=== PATIENT | female | born 1975 | race Caucasian/White ===

== ENCOUNTER 2016-10-24 13:43 | Inpatient (IN) | payer OTHER ==
--- NOTE | ~2016-10-24 | MR59 ---
[facility] A Service of [facility] RADIOLOGY TEXT RESULTS PATIENT: RORO MELENDEZ LOCATION: [facility] 462-01 : 75 UNIT #: [id number] AGE: [address]: Sreekanth Caballero MD SEX: F ORDER DR: [id number] [place] [id number] [facility]. [place], [place] [address] [id number] MR#: [id number] Acc #: [id number] NAME: ORRO MELENDEZ : 1975 SEX: F STUDY DATE/TIME: 10/24/2016 20:44 UNIT: CEDOF ROOM: 96301 STUDY DESCRIPTION: MR Foot WWo Contrast Rt Attending Physician: Shaista Toscano M.D. Ordering Physician: Shaista Toscano M.D. MRI CENTER REPORT This report is preliminary unless electronic signature is present. EXAM MRI of the right foot with and without contrast. HISTORY 41-year-old female with multiple medical problems, states ulcer on plantar aspect of right great toe. Additional ulcers, fourth and fifth toes. FINDINGS Multiplanar, multiecho imaging was performed of the right forefoot utilizing a high-field magnet dedicated protocol. Sagittal and coronal T1-weighted images were performed following IV gadolinium. Studies degraded due to motion artifact. Examination demonstrates arthropathic changes at the IP joint of the great toe. This may represent a chronic or burned out process as no joint fluid is seen at the IP joint. No surrounding marrow edema. There is a subtle marrow edema within the proximal phalanx of the great toe with subtle enhancement postcontrast which could reflect early osteomyelitis though this may just represent reactive changes. Sizable penetrating ulcer seen along the plantar aspect of the great toe measuring about 1.6 cm across its base. There is marked soft tissue swelling and edema circumferentially about the great toe with enhancement postcontrast. Along the plantar aspect of the great toe there is a linear peripherally enhancing fluid collection measuring up to 1.6 cm in length and about 0.6 cm in greatest transverse dimension. This is compatible with a small abscess. At the fifth toe, there is a dorsal ulcer and subtle marrow changes within the distal phalanx of the fifth toe which are concerning for early osteomyelitis. At the fourth toe, there is a dorsal ulcer with edema and marrow changes within the distal phalanx of the fourth toe, compatible with osteomyelitis. This enhances postcontrast also supportive of active infection. There is generalized soft tissue swelling and edema within the forefoot which shows some enhancement postcontrast compatible with cellulitis. Chronic changes within the forefoot musculature of STS[facility] A Service of [facility] RADIOLOGY TEXT RESULTS PATIENT: RORO MELENDEZ LOCATION: [facility] 462-01 : 75 UNIT #: [id number] AGE: [address]: Sreekanth Caballero MD SEX: F ORDER DR: diffuse atrophy and edema compatible with longstanding neurovascular disease. IMPRESSION 1. Extensive soft tissue swelling and edema throughout the forefoot most prominent about the great toe compatible with cellulitis. Along the plantar aspect of the great toe, there is a peripherally enhancing fluid collection measuring about 0.6 x 1.6 cm in greatest transverse dimensions and is compatible with a small abscess. 2. Subtle marrow edema within the proximal phalanx of the great toe but no convincing evidence of osteomyelitis. 3. Advanced arthropathic changes at the IP joint of the great toe but given the absence of fluid and edema, this may represent a burned out process or quiescent arthropathic change. 4. Ulcer along the dorsal aspect of the fourth toe with marrow changes in the distal phalanx compatible with underlying osteomyelitis. Similar but less convincing findings are seen within the fifth toe with a small ulcer and questionable early changes of osteomyelitis involving the distal tip of the fifth toe. Dictated by... Paloma Fonseca M.D. THIS IS AN ELECTRONICALLY VERIFIED REPORT Paloma Fonseca M.D. at 10/25/2016 2:48 PM REBECA/derik TD: 10/24/2016 23:05 JOB #: [id number] MRI CENTER REPORT Page 1 of 1 COPY
--- NOTE | ~2016-10-24 | OR ---
Unit #: [id number] #: [id number] Patient: RORO MELENDEZ [id number] [address] [address] [id number] I MR#: [id number] NAME: RORO MELENDEZ ROOM: 462 Date of Procedure: 10/26/2016 Admission Date: 10/24/2016 Surgeon: Trung Hernandez M.D. : 1975 Attending Physician: Sreekanth Caballero M.D. OPERATIVE REPORT PREOPERATIVE DIAGNOSIS Osteomyelitis of the fourth and fifth toes on the right foot with a diabetic foot ulcer on the plantar aspect of the great toe. PROCEDURE PERFORMED Amputation of fourth and fifth toes at the metatarsophalangeal joint and debridement of ulcer. TECHNOLOGY ADMINISTRATOR None. BLOOD LOSS 25 to 50 mL. DESCRIPTION OF PROCEDURE The patient was brought to the operating room, given general anesthetic. She was already on scheduled IV vancomycin. Right foot was prepped and draped in a sterile fashion. After this was done, we mapped out incisions for the amputation of fourth and fifth toes. These were then performed without a tourniquet with an amputation through the metatarsophalangeal joint. After this was done, the wound was irrigated out and then the skin was closed with 3-0 nylon. We then debrided the ulcer on the plantar aspect of the right foot, removing any necrotic tissue. We then applied a wet-to-dry dressing with normal saline. Sterile dressings were applied upon this and then wrapped with a Kerlix. The patient's general anesthetic was reversed, and she was transferred to the recovery room. Dictated by... Chetna Casey/john TD: 10/27/2016 13:33 JOB #: [id number] Unit #: [id number] #: [id number] Patient: RORO MELENDEZ OPERATIVE REPORT Page 1 of 1 X Trung Hernandez MD X PROCEDURE OPERATIVE NOTE
--- NOTE | ~2016-10-24 | CR126 ---
[facility] A Service of [facility] RADIOLOGY TEXT RESULTS PATIENT: RORO MELENDEZ LOCATION: [facility] : 75 UNIT #: [id number] AGE: [address]: Sreekanth Caballero MD SEX: F ORDER DR: [id number] [facility] [address] [facility]. [place], [place] [address] [id number] MR#: [id number] Acc #: [id number] NAME: RORO MELENDEZ : 1975 SEX: F STUDY DATE/TIME: 10/24/2016 15:41 UNIT: [facility] ROOM: STUDY DESCRIPTION: CR Foot Complete Min 3 View Lt Attending Physician: Francisco Talamantes M.D. Ordering Physician: Francisco Talamantes M.D. MEDICAL IMAGING REPORT This report is preliminary unless electronic signature is present EXAM Left foot 3 views. HISTORY Foot pain, swelling, numbness, tingling for 2 months; history of left ankle fracture 1-1/2 months ago. Diabetic. FINDINGS 3 views of the left foot demonstrate 2 partially threaded screws crisscrossing the IP joint of the left great toe. There is lucency surrounding both of the screws and no significant fusion across the IP joint. This would be concerning for loosening of the instrumentation and the lack of apparent fusion across the IP joint. Mild hallux valgus deformity. There is a healing fracture of the distal fibula with extensive callus formation. The fracture appears visible, but not well imaged on this foot series. Also demonstrated is absence of the distal phalanges of the second, third, and fourth digits. It is unclear whether this is postsurgical in nature or represents a manifestation of acroosteolysis. Not mentioned on the right foot films, there are similar findings involving the second and third phalanges. This does not, however, appear to represent an active process. Correlate with patient's clinical findings. IMPRESSION 1. Apparent fixation across the IP joint with lucency about 2 screws across the IP joint of the great toe suggesting loosening of the instrumentation as well as lack of fusion across the IP joint. 2. Healing distal fibular fracture with exuberant callus. Fracture remains clearly visible, but not well evaluated on this foot series. 3. 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 Correlate with clinical presentation. [facility]. [facility] A Service of [facility] RADIOLOGY TEXT RESULTS PATIENT: RORO MELENDEZ LOCATION: [place] [address] : 75 UNIT #: [id number] AGE: [address]: Sreekanth Caballero MD SEX: F ORDER DR: Dictated by... Paloma Fonseca M.D. THIS IS AN ELECTRONICALLY VERIFIED REPORT Paloma Fonseca M.D. at 10/25/2016 2:45 PM Angeli TD: 10/24/2016 16:50 JOB #: [id number] MEDICAL IMAGING REPORT Page 1 of 1 COPY
--- NOTE | ~2016-10-24 | HP ---
Unit #: [id number] #: [id number] Patient: RORO MELENDEZ [id number] [address] [address] [id number] I MR#: [id number] NAME: RORO MELENDEZ ROOM: 68843 Age: 41 Sex: F Admission Date: 10/24/2016 : 1975 Attending Physician: Shaista Toscano M.D. HISTORY AND PHYSICAL CHIEF COMPLAINT Ulcer on foot. HISTORY OF PRESENT ILLNESS The patient is a 41-year-old female with a past medical history of diabetes with peripheral neuropathy, osteomyelitis, and hypertension, who presented to the emergency department for evaluation of the above. The patient states that she has had an ulcer on the plantar surface of her right foot since May. She does not recall any trauma. She has been seeing Dr. Shipley, a reinforcement maker, in [place], [place], regarding the foot ulcer. She was apparently hospitalized at [facility] in May 2016 for the ulcer. She has not been on antibiotics for several months. She states that it has intermittently been draining pus. She was told that she would need surgery but has not had surgery. In the emergency department, temperature and pulse were 98.1 and 87, respectively. Right foot x-ray shows findings concerning for possible septic arthritis and osteomyelitis. She was given vancomycin in the emergency department. She is being admitted to [facility] for evaluation and further treatment. PAST MEDICAL HISTORY 1. Admission to [facility] in May 2016 for diabetic foot ulcer (no records). 2. Diabetes with peripheral neuropathy. 3. History of osteomyelitis involving toes of the left foot. She is status post amputations of the distal phalanges of the second, third, and fourth digits of the left foot. 4. Possible seizure disorder. The patient states that she has never been on antiepileptic medications and does not see a neurologist. She was told that she possibly had a seizure in the past. PAST SURGICAL HISTORY 1. Right shoulder surgery. 2. Cholecystectomy. 3. Left hip surgery. 4. Amputations of distal phalanges of the second, third, and fourth digits of the left foot. SOCIAL HISTORY The patient lives currently with her [id number]. She just moved here from [place], [place]. She smokes a pack of cigarettes daily. She denies alcohol or illicit drug use. Unit #: [id number] #: [id number] Patient: RORO MELENDEZ FAMILY HISTORY Notable for diabetes. ALLERGIES Penicillin. HOME MEDICATIONS 1. Glucophage 1000 mg twice daily. 2. Zestril 10 mg daily. 3. Cymbalta 60 mg daily. 4. Victoza 1.2 units daily. 5. Neurontin 800 mg t.i.d. REVIEW OF SYSTEMS A complete review of systems is negative except as indicated in the History of Present Illness. The patient denies any fever, no cough or cold symptoms, and no chest pain. She just started vomiting during the course of her evaluation in the emergency department. She denies any diarrhea. She does not routinely check her blood sugars at home. PHYSICAL EXAMINATION VITAL SIGNS: Temperature is 98.1, pulse 87, respirations 18, blood pressure 125/87, and oxygen saturation 100% on room air. GENERAL: Patient is a female who is awake, alert, and actively vomiting. HEENT: Head is atraumatic. Mucous membranes are moist. NECK: Supple. Trachea is midline. CARDIOVASCULAR: Regular rate and rhythm. LUNGS: Clear to auscultation bilaterally with no increased work of breathing. ABDOMEN: Soft and nontender with bowel sounds present in all four quadrants. EXTREMITIES: The right foot demonstrates two ulcers. There is one that is approximately 2 cm on the plantar surface of the foot at the base of the great toe with surrounding erythema and warmth. There are also small ulcers on the fourth and fifth digits. Additionally, she has a small ulcer surrounding the nail bed of the left great toe. The distal phalanges of the second, third, and fourth digits of the left foot have been previously amputated. She does have 2+ dorsalis pedis pulses involving both feet. NEUROLOGIC: Patient is awake and alert. She follows commands. PSYCHIATRIC: Mood and affect are normal. Patient is cooperative. SKIN: Skin demonstrates the previously described abnormalities. DIAGNOSTIC STUDIES LABORATORY: Complete blood count notable for white blood cell count of 13. Sedimentation rate is 58. CRP is 0.8. Basic metabolic panel notable for sodium of 131, chloride 98, and glucose 311. IMAGING: Right foot x-ray shows extensive soft tissue swelling along the medial aspect of the great toe compatible with cellulitis with a penetrating ulcer and extensive deformity at the IP joint. Findings concerning for underlying septic arthritis and osteomyelitis of the great toe are noted. Left foot x-ray shows healing distal fibular fracture with exuberant callus. ASSESSMENT Unit #: [id number] #: [id number] Patient: RORO MELENDEZ The patient is a 41-year-old female with: 1. Diabetic foot ulcer. The patient received vancomycin in the emergency department. 2. Possible septic arthritis involving the interphalangeal joint of the right great toe. 3. Possible osteomyelitis. 4. Uncontrolled diabetes with an initial glucose of 311. 5. Hypertension. 6. Tobacco abuse. PLAN 1. Admit to med/surg. 2. Advance to clear liquid diet as tolerated. 3. N.p.o. after midnight for possible surgical intervention. 4. Normal saline at 125 mL/hour. 5. Blood cultures x2. 6. Wound culture and sensitivity. 7. Vancomycin and Levaquin IV pending further workup. 8. Check MRI of the right foot for further evaluation of osteomyelitis. 9. P.r.n. morphine. 10. P.r.n. Zofran. 11. P.r.n. Tylenol. 12. Consult Dr. Hernandez regarding possible septic arthritis and osteomyelitis involving the right great toe. 13. Hemoglobin A1c. 14. Low-dose sliding scale insulin with Accu-Cheks. 15. Check urinalysis. 16. EKG and chest x-ray as part of possible preoperative evaluation. 17. Additional workup and consultants based on above. 1. Dictated by Chetna Brown/nirmal TD: 10/24/2016 22:38 JOB #: [id number] HISTORY AND PHYSICAL Page 1 of 1 X Shaista Toscano MD HISTORY AND PHYSICAL
--- NOTE | ~2016-10-24 | EKG ---
PATIENT: RORO MELENDEZ UNIT #: [id number] Ventricular Rate: 73 BPM Atrial Rate: 73 BPM P-R Interval: 142 ms QRS Duration: 76 ms Q-T Interval: 404 ms QTC Calculation(Bezet): 445 ms P Augusta: 43 degrees Calculated R [place]a: 24 degrees Calculated T Augusta: 67 degrees Diagnosis Line: Sinus rhythm with sinus arrhythmia with occasional Diagnosis Line: Premature ventricular complexes Diagnosis Line: Possible Left atrial enlargement Diagnosis Line: Borderline ECG Diagnosis Line: No previous ECGs available Diagnosis Line: Confirmed by ANTHONY SOLER MD ([id number]) on Diagnosis Line: 10/25/2016 7:34:07 AM INTERPRETING MD: RENALDO
--- NOTE | ~2016-10-24 | CO ---
Unit #: [id number] #: [id number] Patient: RORO MELENDEZ [id number] [place], [place] [address] [id number] I MR#: [id number] NAME: RORO MELENDEZ ROOM: 462 Age: 41 Sex: F Admission Date: 10/24/2016 : 1975 Attending Physician: Sreekanth Caballero M.D. Consultation Date: 10/25/2016 CONSULTATION REPORT REASON FOR CONSULTATION Antibiotic management in a patient with diabetic foot ulcer/osteomyelitis. HISTORY OF PRESENT ILLNESS This is a 41-year-old female who has a history of diabetes. The patient reports that she has had multiple foot infections in the past on the left side of her foot. She has had amputations on multiple tips of her toes in 05/2016. The patient reports she also had long-term IV and oral antibiotic therapy for her right foot ulcer and toes in 07/2016. She is unaware if she had any specific bacteria, but she reports she continued to have wounds on her feet. The patient reports that she was recommended to have amputation of all of her toes by her build and release manager in [place], [place]. However, she had a fractured left ankle since being told that information and she reports multiple other issues that came up and she never had it done. The patient since has moved to [place], [place] and now she is admitted for diabetic foot ulcers and osteomyelitis. The patient has been seen by the surgeon and she is waiting to go to the operating room for fourth and fifth metatarsal amputation and plantar foot ulcer incision and drainage. As MRI confirmed, osteomyelitis of the fourth toe and possibly on the fifth toe and planar ulcer with small abscess. The patient has been maintained on vancomycin and Levaquin. PAST MEDICAL HISTORY 1. As previously stated in history of present illness. Admission to outside hospital in 2017 secondary to diabetic foot ulcer. 2. Diabetes with peripheral neuropathy. 3. Osteomyelitis of the left foot, status post amputation of the distal phalanges of multiple digits. 4. Possible seizure disorder. However, this is unclear. PAST SURGICAL HISTORY 1. Right shoulder surgery. 2. Cholecystectomy. 3. Left hip surgery. 4. Amputations of prior toes on the left foot, as previously mentioned. SOCIAL HISTORY The patient lives with her family. She denies to me any tobacco, alcohol or IV drug abuse. However, per the history and physical she does have a history of cigarettes in the past. ALLERGIES Penicillin which causes hives. However, the patient believes that she has taken Keflex in the past without difficulty. Unit #: [id number] #: [id number] Patient: RORO MELENDEZ CURRENT MEDICATIONS The patient is currently on vancomycin and Levaquin. She is not on any antiseizure medications at home. REVIEW OF SYSTEMS The patient denies any fevers, chills, nausea, vomiting, diarrhea. She denies any blurred vision, shortness of breath or chest pain. The patient reports multiple areas of drainage from her right foot, most prominently behind her great toe on the plantar region and some on her fourth and fifth digits. PHYSICAL EXAMINATION GENERAL: This is a no apparent distress female who is resting in the bed comfortably. VITALS: Temperature 97.9, pulse 58, blood pressure 112/58, respiratory rate 16. HEENT: Pupils are equal. NECK: Supple. LUNGS: Clear to auscultation bilaterally with no wheezes or rhonchi noted. HEART: S1 and S2. Regular rate and rhythm. ABDOMEN: Positive bowel sounds. Soft and nontender. EXTREMITIES: Left toe shows some healed amputated distal phalanges, right foot shows plantar wound near her great toe with some purulence or odor, but no significant surrounding erythema or cellulitis. She has some scabbed wounds on her fourth and fifth toes. DIAGNOSTIC STUDIES IMAGING: MRI of the foot shows extensive soft tissue swelling and edema throughout the forefoot, most prominent at about the great toe, compatible with cellulitis with small abscess. Also along the fourth toe with marrow changes consistent with underlying osteomyelitis. Less convincing evidence of osteomyelitis in the fifth toe, but may have early changes of osteomyelitis. LABORATORY: BUN 9, creatinine 0.6, sodium 134, potassium 4.1, chloride 103, CO2 24, bilirubin 0.8, AST 16, ALT 12, CRP is 0.8. White blood cell count 8.6, hemoglobin 13.9, hematocrit 42.7, platelets 209,36, sedimentation rate 58. Urinalysis is unremarkable. Microbiology, blood cultures are currently pending. Foot culture is currently pending. ASSESSMENT This is a 41-year-old diabetic female who has had multiple peripheral vascular changes. The patient has prior amputation of distal phalanges on the left foot and now has ulcers on the fourth and fifth toes of the right foot, as well as a plantar ulcer near her great toe. At this time blood cultures and wound culture are currently pending. MRI is compatible with fourth and fifth toe osteomyelitis and small abscess near her plantar ulcer. Will continue coverage with vancomycin and Levaquin due to the patient's reported penicillin allergy. However, the patient reports that she has taken Keflex in the past. Will discuss with Dr. Renteria as the patient may want changing to ceftriaxone for any patient response or allergic reaction. Will follow operative findings, including pathology and cultures as well. We will continue to follow blood cultures. Thank you for allowing us to participate in the care of this patient. Further recommendations will follow pending the patient's clinical course. Unit #: [id number] #: [id number] Patient: RORO MELENDEZ Dictated by... Camryn Neely A.P.R.N. SLS/gz TD: 10/25/2016 14:16 JOB #: [id number] CONSULTATION REPORT Page 1 of 1 X X CONSULTATION REPORT
--- NOTE | ~2016-10-24 | CR72 ---
[facility] A Service of [facility] & [facility] RADIOLOGY TEXT RESULTS PATIENT: RORO MELENDEZ LOCATION: [place] [address] : [birth year] UNIT #: [id number] AGE: [address]: Sreekanth Caballero MD SEX: F ORDER DR: [id number] [place] [address] [place], [place] [address] [id number] I MR#: [id number] Acc #: [id number] NAME: RORO MELENDEZ : 1975 SEX: F STUDY DATE/TIME: 10/24/2016 19:24 UNIT: [facility] ROOM: 30114 STUDY DESCRIPTION: CR Chest Single View Portable Attending Physician: Shaista Toscano M.D. Ordering Physician: Shaista Toscano M.D. MEDICAL IMAGING REPORT This report is preliminary unless electronic signature is present EXAM Portable chest INDICATIONS Preoperative evaluation for foot surgery. PROCEDURE Frontal view chest. COMPARISON None FINDINGS Heart size normal. Lungs are clear. No pleural fluid. No pneumothorax. IMPRESSION No active process Dictated by... Brennen Coffey M.D. THIS IS AN ELECTRONICALLY VERIFIED REPORT Brennen Coffey M.D. at 10/25/2016 10:06 AM BELLA/roly TD: 10/24/2016 20:12 JOB #: [id number] MEDICAL IMAGING REPORT Page 1 of 1 COPY
--- NOTE | ~2016-10-24 | DS ---
Unit #: [id number] #: [id number] Patient: RORO MELENDEZ [id number] [address] [address] [id number] I MR#: [id number] NAME: RORO MELENDEZ ROOM: 46 Age: 41 Sex: F Admission Date: 10/24/2016 : 1975 Discharge Date: 10/29/2016 Attending Physician: Sreekanth Caballero M.D. DISCHARGE SUMMARY DIAGNOSIS ON ADMISSION Right foot diabetic ulcer. DIAGNOSES ON DISCHARGE 1. Right foot diabetic ulcer. 2. Osteomyelitis, secondary to methicillin-sensitive Staphylococcus aureus, status post amputation of fourth and fifth toes at the metatarsophalangeal joints and debridement of the ulcer. 3. Type 2 diabetes mellitus with peripheral neuropathy. 4. History of osteomyelitis with amputation of left foot 2, 3, [address] Hernandez in orthopedic consultation. 2. Dr. Renteria in ID consultation. DIAGNOSTIC STUDIES LABORATORY: Patient's creatinine is 0.6, sodium 134, potassium 3.6. AST and ALT is within normal limits. WBC 7.5, hemoglobin 12.6, platelet count 195,000. Wound culture was positive for Streptococcus pyogenes and Staphylococcus aureus. Hemoglobin A1c was 12.9. HOSPITAL COURSE A 41-year-old female was admitted to the hospital with right foot diabetic ulcer. Details are as per admission H and P. Patient was seen by Dr. Hernandez in consultation who performed amputation of fourth and fifth toe. Patient's wound culture was positive for streptococcus and staphylococcus. She was seen by Dr. Renteria in consultation who recommended IV antibiotics for four weeks more. Patient is allergic to penicillin but stated that she has taken Keflex in past without any problems. Insulin-dependent diabetes mellitus which is uncontrolled. Patient admitted that she was not compliant with her diet and medications but states that she will be more compliant from now onward. Tobacco abuse: Patient was encouraged to quit smoking. RECOMMENDATIONS ON DISCHARGE Medications are: 1. Neurontin 800 mg p.o. t.i.d. 2. Cymbalta 60 mg p.o. every morning. 3. Glucophage 1000 mg p.o. b.i.d. Restart in three days. 4. Tylenol 650 mg p.o. q.6 hours p.r.n. 5. Diflucan 150 mg p.o. daily for three days. 6. Lisinopril 10 mg p.o. daily. Unit #: [id number] #: [id number] Patient: RORO MELENDEZ 7. Percocet 10/325 mg one p.o. q.8 hours p.r.n. pain. 8. Victoza patient is advised to continue 1.2 units subcutaneous daily. 9. Kefzol 2 g IV q.8 hours for four weeks. 10. Patient stated that her primary care has prescribed her glyburide 5 mg p.o. b.i.d. but she has not filled the prescription. Therefore, I will start her on glyburide 5 mg p.o. b.i.d. PLAN We will have home health to follow up regarding wound care and IV antibiotics and to do a weekly CBC, BMP, CRP, and ESR while on antibiotics and call results to ID. Patient is advised to call primary care physician or go to ER if her condition changes. She is advised to have Accu-Cheks a.c. and at bedtime and call primary care physician less than 80 or greater than 350. Next, patient is advised to follow up with Dr. Hernandez as recommended in two weeks. Dictated by... Chetna Frazier/evelyne TD: 10/29/2016 16:04 JOB #: [id number] DISCHARGE SUMMARY Page 1 of 1 X Sreekanth Caballero MD X DISCHARGE SUMMARY
--- NOTE | ~2016-10-24 | CR127 ---
[facility] A Service of [facility] & [facility] RADIOLOGY TEXT RESULTS PATIENT: RORO MELENDEZ LOCATION: [place] [address] : [birth year] UNIT #: [id number] AGE: [address]: Sreekanth Caballero MD SEX: F ORDER DR: [id number] [place] [id number] [facility] [place], [place] [address] [id number] E MR#: [id number] Acc #: [id number] NAME: RORO MELENDEZ : 1975 SEX: F STUDY DATE/TIME: 10/24/2016 15:39 UNIT: [facility] ROOM: STUDY DESCRIPTION: CR Foot Complete Min 3 View Rt Attending Physician: Francisco Talamantes M.D. Ordering Physician: Francisco Talamantes M.D. MEDICAL IMAGING REPORT This report is preliminary unless electronic signature is present EXAM Right foot 3 views HISTORY Pain swelling numbness and tingling right foot for 6 months. Patient diabetic. FINDINGS 3 views of the right foot demonstrates soft tissue swelling about the medial aspect of the great toe with a penetrating ulcer along the medial aspect of the great toe at the level of the IP joint. There are advanced destructive changes within the IP joint of the great toe and in the appropriate setting if this is concerning for underlying septic arthritis. Mild hallux valgus deformity. Remainder of the phalanges are unremarkable. IMPRESSION Extensive soft tissue swelling along the medial aspect of the great toe compatible with cellulitis with a penetrating ulcer and extensive deformity at the IP joint of the great toe. Findings concerning for underlying septic arthritis with destruction of the distal aspect of the proximal phalanx of great toe in the base of the distal phalanx of the great toe. Again in the appropriate setting this is concerning for septic arthritis and osteomyelitis, great toe. Dictated by... Paloma Fonseca M.D. THIS IS AN ELECTRONICALLY VERIFIED REPORT Paloma Fonseca M.D. at 10/25/2016 2:45 PM REBECA/roly TD: 10/24/2016 16:42 JOB #: [id number] [facility] A Service of [facility] & [facility] RADIOLOGY TEXT RESULTS PATIENT: RORO MELENDEZ LOCATION: [place] [address] : [birth year] UNIT #: [id number] AGE: [address]: Sreekanth Caballero MD SEX: F ORDER DR: MEDICAL IMAGING REPORT Page 1 of 1 COPY
--- NOTE | ~2016-10-24 | CO ---
Unit #: [id number] #: [id number] Patient: RORO MELENDEZ [id number] [address] [address] [id number] I MR#: [id number] NAME: RORO MELENDEZ ROOM: 462 Age: 41 Sex: F Admission Date: 10/24/2016 : 1975 Attending Physician: Sreekanth Caballero M.D. Requesting Physician: Shaista Toscano M.D. Consultation Date: 10/25/2016 CONSULTATION REPORT REASON FOR CONSULTATION Right foot diabetic ulcers and osteomyelitis. HISTORY OF PRESENT ILLNESS The patient is a very pleasant 41-year-old female who we were asked to see in consultation by Dr. Toscano for a right foot infection/osteomyelitis. The patient reports that she has had an ulcer on the plantar surface of her right foot since May. She does not recall any trauma. She has been seeing Dr. Moyer, a bearing inspector in [place], [place], regarding these foot ulcers. Apparently it was recommended to amputate most or all of her toes. The patient reports she got a little nervous about doing this and did nothing. The patient has opted to go on antibiotics for several months. The patient reports she has continued to have drainage from the bottom of her right foot and from her fourth and fifth toes. This has progressively been getting worse and then she developed pus. The patient reports that she does have pain in her right foot. She rates the pain as a 10 on the scale of 1 to 10. She admits to numbness and tingling in her right foot. She denies any fever or chills. Denies any chest pain or shortness of air. PAST MEDICAL HISTORY 1. Admission to [facility] in 2017 for diabetic foot ulcer. 2. Diabetes with peripheral neuropathy. 3. History of osteomyelitis involving toes of her left foot. She is status post amputation of distal phalanges of the second, third and fourth digits of her left foot. 4. Questionable seizure disorder. She has not seen a neurologist. PAST SURGICAL HISTORY 1. Right shoulder surgery. 2. Cholecystectomy. 3. Left hip surgery. 4. Amputation of phalanges of the second, third and fourth digits of her left foot. SOCIAL HISTORY The patient lives with her ggzobp-lp-vie. She moved from [place]. She smokes a pack of cigarettes a day. She does not drink any alcohol or use any drugs per the patient. FAMILY HISTORY Notable for diabetes. ALLERGIES Unit #: [id number] #: [id number] Patient: RORO MELENDEZ Penicillin. HOME MEDICATIONS 1. Glucophage 100 mg b.i.d. 2. Zestril 10 mg daily. 3. Cymbalta 60 mg daily. 4. Victoza 1.2 units daily. 5. Neurontin 800 mg t.i.d. REVIEW OF SYSTEMS CONSTITUTIONAL: Denies any weight gain or weight loss. EYES: Denies any double vision or blurred vision. LUNGS: Denies any shortness of air or chronic cough. CARDIOVASCULAR: Denies any chest pain or irregular heartbeat. ABDOMEN: Denies any nausea or vomiting. MUSCULOSKELETAL: Admits to multiple areas of drainage from her right foot. She does have a small area on her great toe of the left foot. NEUROLOGIC: Admits to numbness and tingling. Twelve complete systems in total were reviewed and negative other than above. PHYSICAL EXAMINATION GENERAL: She is well developed and well nourished, in no acute distress. VITALS: Temperature 97.9, blood pressure 112/58, heart rate 33 and regular, respiratory rate 16. HEENT: Normocephalic, atraumatic. Pupils equally round and reactive to light and accommodation. Extraocular movements intact. Conjunctivae clear. NECK: Supple. No thyromegaly. LUNGS: Clear to auscultation. No accessory muscle use. Equal expansion bilaterally. HEART: S1 and S2. ABDOMEN: Soft, nontender and nondistended. Positive bowel sounds. MUSCULOSKELETAL: Examination of her right foot demonstrates two ulcers. There is one that is approximately 2 cm on the plantar surface to the foot at the base of the great toe with surrounding erythema and warmth. There is also a small ulcer on the fourth and fifth digits. She has a small ulcer around her nail bed of her left great toe. The distal phalanges of the second, third and fourth digits of her left foot have been amputated. She does have 2+ pulses in her lower extremities. She did have sensation to both dull and sharp. EXTREMITIES: No clubbing, cyanosis or edema other than noted above. NEUROLOGIC: She is alert and oriented. She follows commands well. SKIN: Per above. DIAGNOSTIC STUDIES IMAGING: Right foot x-ray, extensive soft tissue swelling along the medial aspect of the great toe, compatible with penetrating ulcers, with extensive deformity of the IP joint. There is concern for osteomyelitis. MRI did demonstrate extensive soft tissue swelling and edema throughout the forefoot, most prominent about the great toe, compatible with cellulitis along the plantar aspect of the toe. There is a peripheral enhancement fluid collection measuring about 0.6 x 1.6 cm in greatest transverse dimension and is compatible with a small abscess. There are subtle marrow edema within the proximal phalange of the great toe, but no convincing evidence of osteomyelitis. There is advanced arthritis. She does have an ulcer around the dorsal aspect of the fourth toe with marrow Unit #: [id number] #: [id number] Patient: RORO MELENDEZ changes in the distal phalange, compatible with underlying osteomyelitis. Similar, but less convincing findings are in the fifth toe with small ulcer. Questionable early changes of osteomyelitis involving the distal tip of the fifth toe. LABORATORY: White blood cell count 13, sedimentation rate 58, CRP 0.8. ASSESSMENT 1. Osteomyelitis right foot/fourth and possibly fifth toes. 2. Diabetes. 3. Peripheral neuropathy. 4. Questionable seizure disorder. 5. Tobacco abuse. 6. Hypertension. PLAN We will go ahead and let the patient have a diabetic diet today. We will do dressing changes daily and p.r.n. We will get a consent for ulcer debridement right foot with amputation of the fourth and fifth toes by Dr. Hernandez. I have explained the risks and expected outcome to this type procedure. The risks include, blood clot, infection, neurovascular deficit and even . I did go over the importance of keeping her diabetes controlled. That has probably been a contributing factor. We will check with the operating room to be able to schedule surgery. Once we find a time, we will make the patient n.p.o. for that day. Dictated by... Jan Rodrigues P.A.-C- for Trung Hernandez M.D. ZAFAR/gz TD: 10/25/2016 08:53 JOB #: [id number] CONSULTATION REPORT Page 1 of 1 X X CONSULTATION REPORT
--- NOTE | ~2016-10-24 | XA166 ---
[facility] A Service of [facility] & [facility] RADIOLOGY TEXT RESULTS PATIENT: RORO MELENDEZ LOCATION: [facility] 462-01 : [birth year] UNIT #: [id number] AGE: [address]: Sreekanth Caballero MD SEX: F ORDER DR: [id number] [place] [id number] [facility]. [place], [place] [address] [id number] I MR#: [id number] Acc #: [id number] NAME: RORO MELENDEZ : 1975 SEX: F STUDY DATE/TIME: 10/29/2016 11:14 UNIT: [facility] ROOM: [facility] STUDY DESCRIPTION: XA PICC Line Placement WO Port Attending Physician: Sreekanth Caballero M.D. Ordering Physician: Sreekanth Caballero M.D. MEDICAL IMAGING REPORT This report is preliminary unless electronic signature is present EXAM PICC line placement under ultrasound and fluoroscopy HISTORY Long-term antibiotic therapy. PRE-PROCEDURE The procedure was explained to the patient and/or patient fulfillment representative including risks, benefits, potential complications and potential for alternative forms of treatment. Informed consent was obtained, and prior to initiating the procedure a formal timeout procedure was performed. PROCEDURE Using full standard sterile barrier technique, including caps, gowns, gloves, masks, as well as sterile skin preparation and standard sterile draping, the right arm was prepped and draped in the usual fashion, and real-time sterile ultrasound guidance was used to localize an arm vein and to confirm vessel patency. A hard copy ultrasound image was recorded. After local anesthesia with 1% Xylocaine, the vein was punctured using real-time sterile ultrasound guidance, and an 0.018 guidewire was advanced into the superior vena cava, using fluoroscopic guidance. A 35-cm 5-Albanian dual-lumen PICC was then measured and deployed with the tip positioned in the superior vena cava. The position of the line was documented with a radiographic image. The line was secured in place with an adhesive dressing and an antibiotic patch was applied. Total fluoro time was 0.7 minutes. A single fluoroscopic spot image was obtained. IMPRESSION 1. Successful placement of a 5-Albanian dual-lumen Power PICC via the right arm under ultrasound and fluoroscopic guidance. The tip of the PICC is in good position in the superior vena cava. [facility] A Service of [facility] & [facility] RADIOLOGY TEXT RESULTS PATIENT: RORO MELENDEZ LOCATION: [facility] [address] : [birth year] UNIT #: [id number] AGE: [address]: Sreekanth Caballero MD SEX: F ORDER DR: 2. A single fluoroscopic spot image was obtained. Dictated by... Juancarlos Saleh M.D. THIS IS AN ELECTRONICALLY VERIFIED REPORT Juancarlos Saleh M.D. at 10/30/2016 3:38 PM Gerardo TD: 10/29/2016 23:09 JOB #: [id number] MEDICAL IMAGING REPORT Page 1 of 1 COPY
[2016-10-24 16:17] LABS: BASOPHIL% 0.4 % (0-2.5); EOSINOPHIL# 0.1 X10e3 (0-0.7); EOSINOPHIL% 0.9 % (0.0-7.0); HEMATOCRIT 45.3 % (35.0-45.0); HEMOGLOBIN 14.8 gm/dL (12.0-16.0); LYMPHOCYTE# 3.7 X10e3 (1.0-3.5); LYMPHOCYTE% 28.8 % (17.0-45.0); MEAN CELL VOLUME 83.1 FL (83-96); MEAN CORPUSCULAR HEMOGLOBIN 27.1 PG (28-34); MEAN CORPUSCULAR HGB CONC 32.6 g/dL (30-36); MEAN PLATELET VOLUME 7.8 FL (6.5-11.5); MONOCYTE# 0.6 X10e3 (0-1.0); MONOCYTE% 4.5 % (3.0-12.0); NEUTROPHIL# 8.5 X10e3 (1.5-7.1); NEUTROPHIL% 65.4 % (40-75); PLATELET COUNT 271 X10e3 (140-420); RED BLOOD COUNT 5.45 X10e (3.90-5.30); RED CELL DISTRIBUTION WIDTH 14.8 % (11.0-15.5)
[2016-10-24 16:18] LABS: DIFF IND NO
[2016-10-24] MEDS ORDERED: PATIENT'S PHARMACY (16:48)
[2016-10-24] MEDS ORDERED: DULOXETINE HCL60 MG PO (16:49)
[2016-10-24] MEDS ORDERED: LISINOPRIL PO (16:49)
[2016-10-24] MEDS ORDERED: NEURONTIN800 MG PO (16:49)
[2016-10-24] MEDS ORDERED: VICTOZA0.6 MG/0.1 SUBQ (16:49)
[2016-10-24] MEDS ORDERED: METFORMIN PO (16:49)
[2016-10-24 17:14] LABS: CREATININE SERUM 0.6 mg/dL (0.6-1.4); GLOM FILT RATE Estimated 113.2 mL/min (>60); POTASSIUM 4.2 mmol/L (3.5-5.1)
[2016-10-25 04:19] LABS: BASOPHIL% 0.5 % (0-2.5); EOSINOPHIL# 0.2 X10e3 (0-0.7); EOSINOPHIL% 1.9 % (0.0-7.0); HEMATOCRIT 42.7 % (35.0-45.0); HEMOGLOBIN 13.9 gm/dL (12.0-16.0); LYMPHOCYTE# 4.2 X10e3 (1.0-3.5); LYMPHOCYTE% 48.3 % (17.0-45.0); MEAN CELL VOLUME 83.7 FL (83-96); MEAN CORPUSCULAR HEMOGLOBIN 27.4 PG (28-34); MEAN CORPUSCULAR HGB CONC 32.7 g/dL (30-36); MEAN PLATELET VOLUME 7.9 FL (6.5-11.5); MONOCYTE# 0.6 X10e3 (0-1.0); NEUTROPHIL# 3.6 X10e3 (1.5-7.1); NEUTROPHIL% 42.3 % (40-75); PLATELET COUNT 236 X10e3 (140-420); RED CELL DISTRIBUTION WIDTH 14.4 % (11.0-15.5); WHITE BLOOD COUNT 8.6 X10e3 (4.0-10.5)
[2016-10-25 04:21] LABS: DIFF IND NO
[2016-10-25 04:45] LABS: BILIRUBIN,TOTAL 0.8 mg/dL (0.2-2.0); CALCIUM SERUM 8.4 mg/dL (8.4-10.2); CREATININE SERUM 0.6 mg/dL (0.6-1.4); GLOM FILT RATE Estimated 113.2 mL/min (>60); POTASSIUM 4.1 mmol/L (3.5-5.1); PROTEIN TOTAL SERUM 7.3 g/dL (6.0-8.3)
[2016-10-25 07:00] LABS: URINE SOURCE CLEAN CATCH
[2016-10-25 07:05] LABS: URINE APPEARANCE CLEAR; URINE BILIRUBIN NEG (NEG); URINE BLOOD NEG (NEG); URINE COLOR YELLOW; URINE GLUCOSE 500 MG/DL (NEG); URINE KETONE NEG (NEG); URINE LEUKOCYTE ESTERASE 1+ (NEG); URINE NITRATE NEG (NEG); URINE PROTEIN NEG (NEG); URINE SPECIFIC GRAVITY 1.014 (1.003-1.035)
[2016-10-25 07:06] LABS: URINE BACTERIA AUWI NEG (NEGATIVE); URINE SQUAMOUS EPITHELIAL CELL OCC /[HPF]
[2016-10-25 07:07] LABS: CULTURE INDICATED? NO
[2016-10-26 03:05] LABS: HEMATOCRIT 43.2 % (35.0-45.0); MEAN CELL VOLUME 84.6 FL (83-96); MEAN CORPUSCULAR HEMOGLOBIN 27.3 PG (28-34); MEAN CORPUSCULAR HGB CONC 32.3 g/dL (30-36); MEAN PLATELET VOLUME 7.9 FL (6.5-11.5); RED BLOOD COUNT 5.1 X10e (3.90-5.30); RED CELL DISTRIBUTION WIDTH 14.7 % (11.0-15.5); WHITE BLOOD COUNT 7.5 X10e3 (4.0-10.5)
[2016-10-26 03:39] LABS: BUN/CREATININE RATIO 21.66; CALCIUM SERUM 8.3 mg/dL (8.4-10.2); CREATININE SERUM 0.6 mg/dL (0.6-1.4); GLOM FILT RATE Estimated 113.2 mL/min (>60); POTASSIUM 4.1 mmol/L (3.5-5.1)
[2016-10-27 04:08] LABS: BUN/CREATININE RATIO 17.14; CALCIUM SERUM 8.3 mg/dL (8.4-10.2); CREATININE SERUM 0.7 mg/dL (0.6-1.4); GLOM FILT RATE Estimated 107.6 mL/min (>60); POTASSIUM 3.9 mmol/L (3.5-5.1)
[2016-10-29 04:10] LABS: HEMATOCRIT 38.2 % (35.0-45.0); HEMOGLOBIN 12.6 gm/dL (12.0-16.0); MEAN CELL VOLUME 83.8 FL (83-96); MEAN CORPUSCULAR HEMOGLOBIN 27.5 PG (28-34); MEAN CORPUSCULAR HGB CONC 32.8 g/dL (30-36); MEAN PLATELET VOLUME 8.2 FL (6.5-11.5); RED BLOOD COUNT 4.56 X10e (3.90-5.30); RED CELL DISTRIBUTION WIDTH 14.7 % (11.0-15.5); WHITE BLOOD COUNT 7.5 X10e3 (4.0-10.5)
[2016-10-29 04:40] LABS: CALCIUM SERUM 8.3 mg/dL (8.4-10.2); CREATININE SERUM 0.6 mg/dL (0.6-1.4); GLOM FILT RATE Estimated 113.2 mL/min (>60); POTASSIUM 3.6 mmol/L (3.5-5.1)
[2016-10-29] MEDS ORDERED: TYL325 PO (16:55)
[2016-10-29] MEDS ORDERED: DIFLUCAN PO (16:56)
[2016-10-29] MEDS ORDERED: PERCOCET10 PO (16:57)
[2016-10-29] MEDS ORDERED: CEFAZOLIN-2 GM/50 ML IV (16:58)
[2016-10-29] MEDS ORDERED: MICRONASE5 M2 PO (16:59)
== END 2016-10-29 18:20 | disposition home health service (06) | DRG 617 ==
LOC: CED 13:43 → CEDOF 18:55 → C4C 18:55 → CED 19:23 → CEDOF 19:23 → C4C 23:07
PROVIDERS: Emergency Medicine; Family Medicine; Internal Medicine; Orthopaedic Surgery
PROC: 0JBQ0ZZ Excision of Right Foot Subcutaneous Tissue and Fascia, Open Approach (ICD-10-PCS; 2016-10-26)
PROC: 0Y6X0Z0 Detachment at Right 5th Toe, Complete, Open Approach (ICD-10-PCS; principal; 2016-10-26 16:30)
PROC: 0Y6V0Z0 Detachment at Right 4th Toe, Complete, Open Approach (ICD-10-PCS; 2016-10-26 16:30)
PROC: 02HV33Z Insertion of Infusion Device into Superior Vena Cava, Percutaneous Approach (ICD-10-PCS; 2016-10-29)
PROC: B518YZA Fluoroscopy of Superior Vena Cava using Other Contrast, Guidance (ICD-10-PCS; 2016-10-29)
PROC: B548ZZA Ultrasonography of Superior Vena Cava, Guidance (ICD-10-PCS; 2016-10-29)
PROC: 3E0234Z Introduction of Serum, Toxoid and Vaccine into Muscle, Percutaneous Approach (ICD-10-PCS; 2016-10-29)
DX: E11.69 Type 2 diabetes mellitus with other specified complication (principal); M86.8X7 Other osteomyelitis, ankle and foot; E11.65 Type 2 diabetes mellitus with hyperglycemia; I10 Essential (primary) hypertension; E11.621 Type 2 diabetes mellitus with foot ulcer; L97.519 Non-pressure chronic ulcer of other part of right foot with unspecified severity; Z79.84 Long term (current) use of oral hypoglycemic drugs; Z88.0 Allergy status to penicillin; E11.42 Type 2 diabetes mellitus with diabetic polyneuropathy; Z89.422 Acquired absence of other left toe(s); Z90.49 Acquired absence of other specified parts of digestive tract; E11.628 Type 2 diabetes mellitus with other skin complications; L03.031 Cellulitis of right toe; F17.210 Nicotine dependence, cigarettes, uncomplicated; B95.61 Methicillin susceptible Staphylococcus aureus infection as the cause of diseases classified elsewhere; Z23 Encounter for immunization
CPT/HCPCS: 36415; 71010; 73630; 73720; 76937; 77001; 80048; 80053; 80202; 81003; 82947; 83036; 84703; 85025; 85027; 85610; 85652; 86140; 87040; 87070; 87077; 87186; 87205; 88305; 90732; 93005; 96365; 96366; 97116; 97161; 97530; 99285; A9577; C1751; G0009; G8978-GP; G8979-GP; G8980-GP; J0690; J1815; J1956; J2270; J2405; J3010; J3370

== ENCOUNTER 2016-11-26 15:35 | Emergency (ER) | payer OTHER ==
--- NOTE | ~2016-11-26 | CR157 ---
[facility] A Service of [facility] & [facility] RADIOLOGY TEXT RESULTS PATIENT: RORO MELENDEZ LOCATION: [place] : 75 UNIT #: [id number] AGE: [address]: ALEK SAMSON SEX: F ORDER DR: [id number] [place] [id number] E MR#: [id number] Acc #: [id number] NAME: RORO MELENDEZ : 1975 SEX: F STUDY DATE/TIME: 11/26/2016 18:42 UNIT: SED ROOM: STUDY DESCRIPTION: CR Humerus Min 2 View Rt Attending Physician: Alek Samson Ordering Physician: Alek Samson Primary Care Physician: Estuardo Renteria M.D. MEDICAL IMAGING REPORT This report is preliminary unless electronic signature is present. EXAM Right humerus 2 views, 11/26/2016. HISTORY Right upper extremity pain status post PICC line removal today. FINDINGS 2 views of the right humerus demonstrate persistent PICC line in place within the right upper extremity with the tip adjacent to the medial aspect of the proximal right humeral diaphysis. Clinical correlation is recommended. The bones are normally mineralized. IMPRESSION Persistent right arm approach PICC line with the tip overlying the medial aspect of the proximal humeral diaphysis. Clinical correlation recommended. Dictated by... Moreno Cordero M.D. THIS IS AN ELECTRONICALLY VERIFIED REPORT Moreno Cordero M.D. at 11/27/2016 2:14 PM KRT/gz TD: 11/27/2016 10:26 JOB #: [id number] MEDICAL IMAGING REPORT Page 1 of 1
--- NOTE | ~2016-11-26 | CR63 ---
[facility] A Service of [facility] & [facility] RADIOLOGY TEXT RESULTS PATIENT: RORO MELENDEZ LOCATION: [place] : 75 UNIT #: [id number] AGE: [address]: ALEK SAMSON SEX: F ORDER DR: [id number] [place] [id number] E MR#: [id number] Acc #: [id number] NAME: RORO MELENDEZ : 1975 SEX: F STUDY DATE/TIME: 11/26/2016 18:42 UNIT: SED ROOM: STUDY DESCRIPTION: CR Chest 2 View Attending Physician: Alek Samson Ordering Physician: Alek Samson Primary Care Physician: Estuardo Renteria M.D. MEDICAL IMAGING REPORT This report is preliminary unless electronic signature is present. EXAM Chest PA and lateral 11/26/2016 HISTORY Post invasive procedure today. PICC line removal due to pain. FINDINGS The heart is normal in size. The lungs are clear. There are no pleural effusions. No PICC line is identified. IMPRESSION Negative chest. No PICC line is identified. Dictated by... Moreno Cordero M.D. THIS IS AN ELECTRONICALLY VERIFIED REPORT Moreno Cordero M.D. at 11/27/2016 2:13 PM KRT/salinas TD: 11/27/2016 10:07 JOB #: [id number] MEDICAL IMAGING REPORT Page 1 of 1
[~2016-11-26 15:35] MED LIST: CEFAZOLIN-2 GM/50 ML IV; DIFLUCAN PO; DULOXETINE HCL60 MG PO; LISINOPRIL PO; METFORMIN PO; MICRONASE5 M2 PO; NEURONTIN800 MG PO; PATIENT'S PHARMACY; PERCOCET10 PO; TYL325 PO; VICTOZA0.6 MG/0.1 SUBQ
== END 2016-11-26 20:05 | disposition home or self-care (01) ==
LOC: SED 15:35
DX: Z45.2 Encounter for adjustment and management of vascular access device (principal); E11.9 Type 2 diabetes mellitus without complications; Z90.49 Acquired absence of other specified parts of digestive tract; F17.210 Nicotine dependence, cigarettes, uncomplicated; Z88.0 Allergy status to penicillin; Z79.84 Long term (current) use of oral hypoglycemic drugs; Z79.899 Other long term (current) drug therapy
CPT/HCPCS: 71020; 73060; 84703; 99284